=== PATIENT | male | born 1990 | race Caucasian/White ===

== ENCOUNTER 2016-10-12 19:07 | Emergency (ER) | payer SELFPAY ==
[~2016-10-12] VITALS: Ht 172.7 cm; Wt 62.5 kg
[~2016-10-12 19:07] MED LIST: Z.0.NO CURRENT MEDS
[2016-10-12 19:14] VITALS: BP 115/85; PULSE 60; RESP 18; TEMP 97.7; O2SAT 100
[2016-10-12] MEDS ORDERED: CIPR0.2S RIGHT EAR (19:57)
--- NOTE | 2016-10-12 19:57 | PD ---
HPI Chief Complaint: ENT Complaint Time Seen by Provider: 19:40 Travel History International Travel<30 days: No Contact w/Intl Traveler<30days: No Traveled to known affect area: No History of Present Illness HPI 26-year-old male presents to the emergency room for evaluation of right ear pain and drainage for the past 5-7 days. Patient states he got out of the shower and was rubbing his ear with a towel when he felt a pop and immediate pain. Since then he has had drainage. Patient wakes up with drainage on his pillow. He reports mildly decreased hearing. He went to the pharmacy and picked up swimmer's ear drops but they have not helped at all. He denies fever , chills, nausea, and vomiting. No other symptoms. He denies chronic medical conditions or daily medications. PFSH Past Medical History Diminished Hearing: No Hiatal Hernia: Yes Tetanus Vaccination: < 5 Years Influenza Vaccination: No ?: Not Past Surgical History Abdominal Surgery: Yes (DOUBLE HERNIA) Other Surgery: Yes (ROSALINDA INGUINAL HERNIA REPAIR) Social History Alcohol Use: No Tobacco Use: No Substance Use: No Allergies-Medications (Allergen,Severity, Reaction): Coded Allergies: No Known Allergies (Verified , 10/12/16) Reported Meds & Prescriptions Reported Meds & Active Scripts Active Ciprofloxacin Otic Drops 0.2% Soln 0.25 Ml RIGHT EAR BID Reported No Current Meds (Miscellaneous Medication) Misc Review of Systems Except as stated in HPI: all other systems reviewed are Neg Physical Exam Narrative GENERAL: Well-nourished, well-developed male in no acute distress. Afebrile. Ambulatory. SKIN: Focused skin assessment warm/dry. HEAD: Normocephalic. EYES: PERRL, EOMI, no discharge or injection. No scleral icterus. EARS: Bilateral pinnae within normal limits. Left tympanic membrane unremarkable. Right tympanic membrane is occluded with purulent drainage. NECK: Supple, trachea midline. No JVD or lymphadenopathy. CARDIOVASCULAR: Regular rate and rhythm without murmurs, gallops, or rubs. RESPIRATORY: Breath sounds equal bilaterally. No accessory muscle use. Data Data Last Documented VS Vital Signs Date Time Temp Pulse Resp B/P Pulse Ox O2 Delivery O2 Flow Rate FiO2 10/12/16 19:14 97.7 60 18 115/85 100 MDM Medical Decision Making Medical Screen Exam Complete: Yes Emergency Medical Condition: Yes Medical Record Reviewed: Yes Differential Diagnosis Otitis media, otitis externa, eustachian tube dysfunction Narrative Course 26-year-old male presents to the emergency room for evaluation of right ear pain and drainage for the past 5 days. No other complaints or symptoms. Patient is afebrile and well-appearing. Physical exam reveals moderate, purulent drainage of the right ear that is occluding the eardrum. This is otitis externa. Patient discharged with ciprofloxacin and told to follow-up with a primary care physician or return for worsening symptoms. He understands and agrees to plan. Diagnosis Primary Impression: Right otitis externa Qualified Code: H60.311 - Acute diffuse otitis externa of right ear Referrals: Primary Care Physician Patient Instructions: General Instructions, Otitis Externa (ED) Additional Instructions: Rest and drink plenty of fluids. Apply drops as directed for 7 days. Follow-up with a primary care physician. Return to the emergency room for worsening symptoms. Scripts Ciprofloxacin Otic Drops 0.2% Soln0.25 Ml RIGHT EAR BID #1 BOX Ref 0 Prov:Holley Ervin MD 10/12/16 Disposition: 01 DISCHARGE HOME Condition: Stable Ingrid Lundberg Oct 12, 2016 19:56
== END 2016-10-12 20:04 | disposition home or self-care (01) ==
LOC: PHEFT 19:07
DX: H60.91 Unspecified otitis externa, right ear (principal)
CPT/HCPCS: 99283

== ENCOUNTER 2017-01-18 20:21 | Emergency (ER) | payer SELFPAY ==
[~2017-01-18] VITALS: Ht 172.7 cm; Wt 61.2 kg
[~2017-01-18 20:21] MED LIST changes: +CIPR0.2S RIGHT EAR
[2017-01-18 20:24] VITALS: BP 136/68; PULSE 91; RESP 16; TEMP 98.6; O2SAT 98
[2017-01-18] MEDS ORDERED: LIDOCAINE HCL 1% 50 ML VIAL INFIL ONE (20:45)
[2017-01-18] MEDS ORDERED: CIPR0.2S RIGHT EAR (20:47)
--- NOTE | 2017-01-18 20:49 | PD ---
HPI Chief Complaint: ENT Complaint Time Seen by Provider: 20:36 Travel History International Travel<30 days: No Contact w/Intl Traveler<30days: No Traveled to known affect area: No History of Present Illness HPI 26 year old male presents to the emergency department for evaluation of left ear pain after surfing today. He reports history of otitis externa. He reports no other symptoms. No fevers or chills. No cough or congestion. Patient reports no chronic medical problems and takes no prescribed medications. PFSH Past Medical History Medical History: Denies Significant Hx Diminished Hearing: No Hiatal Hernia: Yes Tetanus Vaccination: < 5 Years Influenza Vaccination: No ?: Not Past Surgical History Abdominal Surgery: Yes (DOUBLE HERNIA) Other Surgery: Yes (Inguinal hernia) Social History Alcohol Use: Yes (occassional/weekly) Tobacco Use: No (quit 2.5 years ago ) Substance Use: No Allergies-Medications (Allergen,Severity, Reaction): Coded Allergies: No Known Allergies (Verified , 01/18/17) Reported Meds & Prescriptions Reported Meds & Active Scripts Active No Active Prescriptions or Reported Medications Review of Systems Except as stated in HPI: all other systems reviewed are Neg Physical Exam Narrative GENERAL: Well-nourished, well-developed male patient, ambulatory. Afebrile. SKIN: Focused skin assessment warm/dry. HEAD: Normocephalic. Atraumatic. ENT: Mucosa pink and moist. No erythema or exudates. No uvular edema. No uvular , palatal, or tonsillar deviation. Airway patent. Nasal turbinates appear normal without nasal blood, purulent drainage or septal hematoma. Right ear canal is swollen and tender to palpation. EYES: No scleral icterus. No injection or drainage. NECK: Supple, trachea midline. No JVD or lymphadenopathy. CARDIOVASCULAR: Regular rate and rhythm without murmurs, gallops, or rubs. RESPIRATORY: Breath sounds equal bilaterally. No accessory muscle use. Lungs sounds are clear to auscultation. GASTROINTESTINAL: Abdomen soft, non-tender, nondistended. MUSCULOSKELETAL: No cyanosis, or edema. BACK: Nontender without obvious deformity. No CVA tenderness. Data Data Last Documented VS Vital Signs Date Time Temp Pulse Resp B/P (MAP) Pulse Ox O2 Delivery O2 Flow Rate FiO2 01/18/17 20:24 98.6 91 16 136/68 (90) 98 Orders Orders Lidocaine 1% Inj (50 Ml) (Xylocaine 1% I (01/18/17 20:45) [facility] Medical Decision Making Medical Screen Exam Complete: Yes Emergency Medical Condition: Yes Medical Record Reviewed: Yes Differential Diagnosis Otitis externa versus otitis media versus eustachian tube dysfunction Narrative Course 26-year-old male presents to the emergency department for evaluation of right ear pain after surfing today. Physical exam is consistent otitis externa. Ear wick is placed. Patient will be discharged with a prescription for Cortisporin drops. He is to remove ear wick in 48 hours. He verbalizes agreement. He is to return here for any acute worsening of symptoms. He is to follow-up with a primary care physician. Diagnosis Primary Impression: Right otitis externa Qualified Codes: H60.501 - Unspecified acute noninfective otitis externa, right ear Referrals: Primary Care Physician call for appointment Patient Instructions: General Instructions, Otitis Externa (ED) Additional Instructions: Remove ear wick in 2 days. Use ear drops as directed. Follow up with your primary care physician. Return to the emergency department for any acute, worsening of symptoms. Med/Other Pt SpecificInfo: Prescription(s) given Scripts Ciprofloxacin Otic Drops (Ciprofloxacin Otic Drops) 0.2% Soln 0.25 ML RIGHT EAR BID for Infection, #1 BOX 0 Refills Prov: Soo Leon 01/18/17 Disposition: 01 DISCHARGE HOME Condition: Stable Soo Leon Jan 18, 2017 20:49
== END 2017-01-18 20:58 | disposition home or self-care (01) ==
LOC: PHEFT 20:21
DX: H60.501 Unspecified acute noninfective otitis externa, right ear (principal)
CPT/HCPCS: 99283

== ENCOUNTER 2017-04-24 13:01 | Emergency (ER) | payer SELFPAY ==
[~2017-04-24] VITALS: Ht 172.7 cm; Wt 62.0 kg
[~2017-04-24 13:01] MED LIST changes: -Z.0.NO CURRENT MEDS
[2017-04-24 13:06] VITALS: BP 129/62; PULSE 89; RESP 16; TEMP 97.9; O2SAT 98
[2017-04-24] MEDS ORDERED: CLIN300C5 PO (13:52)
--- NOTE | 2017-04-24 13:52 | PD ---
HPI Chief Complaint: Skin Problem Time Seen by Provider: 13:20 Travel History International Travel<30 days: No Contact w/Intl Traveler<30days: No Traveled to known affect area: No History of Present Illness HPI 26-year-old male presents to emergency department complaining of a lesion on his right earlobe for approximately 1 month. Patient states that he has had issues with his earlobe for years and previously was diagnosed with a "staph infection". States that he has been popping a pimple on his right ear and has been getting fluid out of his earlobe. States his pain is moderate and decided to come in today because of the pain. Patient denies radiation of pain. He denies fever or chills. Also denies chronic medical problems or medication use. Patient has not been evaluated for this problem. PFSH Past Medical History Diminished Hearing: No Hiatal Hernia: Yes Immunizations Current: No Past Surgical History Abdominal Surgery: Yes (DOUBLE HERNIA) Other Surgery: Yes (Inguinal hernia) Social History Alcohol Use: Yes (occassional/weekly) Tobacco Use: Yes (1/2PPD) Substance Use: No Allergies-Medications (Allergen,Severity, Reaction): Coded Allergies: No Known Allergies (Verified Adverse Reaction, Unknown, 04/24/17) Reported Meds & Prescriptions Reported Meds & Active Scripts Active Clindamycin (Clindamycin HCl) 300 Mg Cap 300 Mg PO TID 7 Days Review of Systems Except as stated in HPI: all other systems reviewed are Neg Physical Exam Narrative GENERAL: Well-nourished, well-developed patient. SKIN: Focused skin assessment warm/dry. Right earlobe- mildly fluctuance 2 mm mass, purulent fluid spontaneously expressed. Superficial abrasions/excoriations. No surrounding erythema or masses. HEAD: Normocephalic. EYES: No scleral icterus. No injection or drainage. NECK: Supple, trachea midline. No JVD or lymphadenopathy. CARDIOVASCULAR: Regular rate and rhythm without murmurs, gallops, or rubs. RESPIRATORY: Breath sounds equal bilaterally. No accessory muscle use. MUSCULOSKELETAL: No cyanosis, or edema. BACK: Nontender without obvious deformity. No CVA tenderness. Data Data Last Documented VS Vital Signs Date Time Temp Pulse Resp B/P (MAP) Pulse Ox O2 Delivery O2 Flow Rate FiO2 04/24/17 13:06 97.9 89 16 129/62 (84) 98 Orders Orders Clindamycin Inj (Cleocin Inj) (04/24/17 14:00) Acetamin-Hydrocod 325-5 Mg (Bend 5-325 (04/24/17 14:00) Ed Discharge Order (04/24/17 13:56) [facility] Medical Decision Making Medical Screen Exam Complete: Yes Emergency Medical Condition: Yes Differential Diagnosis Right ear abscess, cellulitis, erysipelas Narrative Course 26-year-old male presents to emergency department complaining of a lesion on his right earlobe for approximately 1 month. Patient states that he has had issues with his earlobe for years and previously was diagnosed with a "staph infection". States that he has been popping a pimple on his right ear and has been getting fluid out of his earlobe. States his pain is moderate and decided to come in today because of the pain. Patient denies radiation of pain. He denies fever or chills. Also denies chronic medical problems or medication use. Patient has not been evaluated for this problem. Vital signs stable Physical exam findings demonstrated a nontoxic appearing 26-year-old male. The right earlobe appears to have impetigo along with a very small abscess that is spontaneously draining. No extension of erythema or edema. Bilateral cerumen impaction. We discussed the risk vs benefits of I&D. The site is spontaneously draining without intervention. The site is extremely small and I believe the risk with a benefits of incision and drainage today. Patient says that the area has been draining on its own and will likely heal on its on with antibiotics. Clindamycin and hydrocodone administered in the ED. Advised patient to clindamycin as prescribed. 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 Avoid Q-tips. Patient to follow up with his primary care physician within 2-3 days. Advised to return to the emergency department for worsening or persistent symptoms. Diagnosis Primary Impression: Abscess Additional Impressions: Impetigo Cerumen impaction Qualified Codes: H61.23 - Impacted cerumen, bilateral Referrals: [facility] Additional Instructions: Follow up with your primary care physician within 2-3 days. If your symptoms persist or worsen, return to the emergency department. Keep area clean and dry. You may bathe as normal. You may use [id number] triple antibiotic ointments Change dressings daily. Use warm compresses If he developed increased redness, swelling, or pain return to the emergency department. Scripts Clindamycin (Clindamycin) 300 Mg Cap 300 MG PO TID for Infection for 7 Days, CAP 0 Refills Prov: Nikki Grubbs 04/24/17 Disposition: 01 DISCHARGE HOME Condition: Stable Nikki Grubbs Apr 24, 2017 13:52
[2017-04-24] MEDS ORDERED: ACETAMINOPHEN/HYDROcodone 325 MG/5 MG TAB PO ONE (14:00)
[2017-04-24] MEDS ORDERED: CLINDAMYCIN PHOS 600 MG/4 ML VIAL IM ONE (14:00)
== END 2017-04-24 14:39 | disposition home or self-care (01) ==
LOC: PHEFT 13:01
DX: H60.01 Abscess of right external ear (principal); L01.00 Impetigo, unspecified; H62.41 Otitis externa in other diseases classified elsewhere, right ear; H61.23 Impacted cerumen, bilateral; F17.200 Nicotine dependence, unspecified, uncomplicated
CPT/HCPCS: 96372